=== PATIENT | female | born 2000 | race African-American/Black ===

== ENCOUNTER 2020-10-05 16:19 | Emergency (ER) | payer OTHER ==
[2020-10-05 17:42] LABS: Clarity Hazy (Clear); pH, Urine 7.4 (5.0-9.0)
[2020-10-05 17:46] LABS: Bacteria/HPF Rare-Few HPF (None Seen); WBC/HPF 0-3 HPF (0-3)
[2020-10-05 18:21] LABS: Hemoglobin 13.6 g/dL (12.0-16.0); Mean Corpuscular HGB CONC 33.6 g/dL (32.0-36.0); Mean Corpuscular Volume 95.3 fL (78.0-98.0); Mean Platelet Volume 9.4 fL (7.4-10.4); Platelet Count 174 thou/uL (130-400); RBC Distribution Width 11.8 % (11.5-14.5); Red Blood Cell (RBC) Count 4.25 mill/uL (4.20-5.40); White Blood Cell (WBC) Count 11.8 thou/uL (4.8-10.8)
[2020-10-05 18:31] LABS: MONO NEGATIVE CONTROL ZONE White (Negative) (White); MONO POSITIVE CONTROL Pink Line (Positive) (PINK/RED); Mononucleosis POSITIVE (NEGATIVE)
[2020-10-05 18:38] LABS: ALT (SGPT) 549 U/L (8-55); AST (SGOT) 720 U/L (5-34); Albumin 3.6 g/dL (3.5-5.0); Alkaline Phosphatase 189 U/L (40-110); Anion Gap 13 mmol/L (10-20); BUN (Urea Nitrogen) 8 mg/dL (7.0-18.7); Band 2 % (5-11); Bilirubin, Total 5.5 mg/dL (0.2-1.2); Calc. Creatinine Clearance 0 mL/min (70-130); Calcium 8.8 mg/dL (7.8-10.44); Carbon Dioxide 27 mmol/L (22-29); Chloride 98 mmol/L (98-107); Eosinophils 1 % (0-10); Globulin 3.8 g/dL (2.4-3.5); Glucose 83 mg/dL (70-105); Lymphocytes 36 % (21-51); MDiff Complete? YES; Monocytes 8 % (0-10); Neutrophil 25 % (42-75); Platelet Morphology Comment Appears Adequate; Potassium 4.1 mmol/L (3.5-5.1); Protein, Total 7.4 g/dL (6.0-8.3); RBC Morphology Normal; Reactive Lymphocytes 28 % (0-10); Sodium 134 mmol/L (136-145)
[2020-10-05] MEDS ORDERED: Ibuprofen 200 MG TAB ONE (19:02)
[2020-10-05 20:11] LABS: HBSAg Index 0.17 S/CO (0-0.99); Hep A IgM AB Non-Reactive (NonReactive); Hep A IgM S/CO 0.19 S/CO (0-0.79); Hep B Surf Ag Non-Reactive S/CO (NonReactive); Hep C IgG Ab Non-Reactive (NonReactive); Hep C Index 0.24 S/CO (0-0.79); Hepatitis B Core IgM Abs Non-Reactive (NonReactive)
[2020-10-05 21:12] LABS: Pregnancy Test - Urine (BHCG) Negative (Negative); Pregu Control Background? CLEAR/WHITE (CLR/WHITE); Pregu Control Bar Appear? YES (CONTROL BAR)
== END 2020-10-05 21:04 | disposition home or self-care (01) ==
LOC: ERS 16:19
DX: B19.9 Unspecified viral hepatitis without hepatic coma (principal); B27.90 Infectious mononucleosis, unspecified without complication
CPT/HCPCS: 36415; 76705; 80053; 80074; 81003; 81025; 82550; 83605; 83690; 85025; 86308; 87086